=== PATIENT | female | born 1930 | race African-American/Black ===

== ENCOUNTER 2017-04-26 12:31 | Emergency (ER) | payer MEDICARE ==
[~2017-04-26] VITALS: Ht 172.7 cm; Wt 59.0 kg
[2017-04-26 12:48] VITALS: BP 147/82
== END 2017-04-26 17:47 | disposition left against medical advice (07) ==
LOC: ER 17:47
DX: R07.0 Pain in throat (principal); Z53.21 Procedure and treatment not carried out due to patient leaving prior to being seen by health care provider